=== PATIENT | female | born 2005 | race Two or more races ===

== ENCOUNTER 2025-06-01 03:55 | Emergency (ER) | payer MEDICAID, SELFPAY ==
[2025-06-01 03:58] VITALS: BMI 24.2
[2025-06-01 04:10] VITALS: BP 103/65; PULSE 60; RESP 18; TEMP 37.6; O2SAT 98
[2025-06-01 04:12] VITALS: BP 101/67; PULSE 74; RESP 17; TEMP 36.9; O2SAT 97
--- NOTE | 2025-06-01 05:32 | EDNOTE_ITS ---
ED Headache RME/HPI General Chief Complaint: Headache Stated Complaint: OCCIPITAL AREA PAIN Time Seen by Provider: 06/01/25 04:45 Arrival date/time: 06/01/25 03:55 19F with no significant PMH presents to ED with several days of CHAHAL that gradually got worse. Tylenol helps, but wears off. Chills and possible fever, but not measured. Patient denies URI symptoms, dysuria, N/V, ab pain, and fall/trauma. Limitations: no limitations Related Data Allergies Allergy/AdvReac Type Severity Reaction Status Date / Time No Known Allergies Allergy Verified 06/01/25 04:04 Review of Systems Review of Systems Systems Reviewed: All systems reviewed, normal except as documented Constitutional Constitutional: Reports system reviewed and no additional complaints, except as documented, Reports as per HPI, Reports chills, Reports fever(s) and Reports headache(s) ENT Ears, Nose, Mouth, and Throat: Denies disequilibrium and Reports headache(s) Cardiovascular Cardiovascular: Reports system reviewed and no additional complaints, except as documented, Denies chest pain and Denies dyspnea Respiratory Respiratory: Reports system reviewed and no additional complaints, except as documented, Denies cough and Denies dyspnea Gastrointestinal Gastrointestinal: Reports system reviewed and no additional complaints, except as documented, Denies abdominal pain, Denies nausea and Denies vomiting Neurologic Neurologic: Reports system reviewed and no additional complaints, except as documented, Denies confusion, Denies disequilibrium and Reports headache(s) Psychiatric Psychiatric: Denies confusion Past Medical History Social History SMOKING STATUS: Never smoker ED Exam General Limitations: Present no limitations General appearance: Present alert and in no apparent distress Head Head exam: Present atraumatic Eye Eye exam: Present normal appearance, PERRL and EOMI ENT ENT exam: Present normal exam, normal oropharynx and mucous membranes moist Neck Neck exam: Present normal inspection, full ROM and trachea midline Chest Chest inspection: Present normal inspection and symmetric chest wall rise Respiratory Respiratory exam: Present normal lung sounds bilaterally Cardiovascular Cardiovascular exam: Present regular rate, normal rhythm and normal heart sounds Abdominal Exam Abdominal exam: Present soft and normal bowel sounds Extremities Exam Extremities exam: Present normal inspection and full ROM Back Exam Back exam: Present normal inspection and full ROM Neurological Exam Neurological exam: Present alert, oriented X3 and CN II-XII intact Psychiatric Psychiatric exam: Present normal affect and normal mood Skin Skin exam: Present warm, dry, intact and normal color Course Quality Measures none Orders Category Date Time Status Bedside COVID-19 Antigen Test NOW Care 06/01/25 04:30 Active Bedside Influenza A&B Antigen Test NOW Care 06/01/25 04:30 Active Metoclopramide [Reglan] Med 06/01/25 04:46 Discontinued 10 mg PO X1 ONE Naproxen [Naprosyn] Med 06/01/25 04:46 Discontinued 500 mg PO X1 ONE Vital Signs Vital signs: Vital Signs Temperature 99.6 F 06/01/25 04:10 Pulse Rate 60 06/01/25 04:10 Respiratory Rate 18 06/01/25 04:10 Blood Pressure 103/65 06/01/25 04:10 Pulse Oximetry (%) 98 06/01/25 04:10 Oxygen Delivery Method Room Air 06/01/25 04:10 O2 at 98% on RA and WNLs Headache MDM Narrative MDM Narrative:: 19F with no significant PMH presents to ED with several days of CHAHAL that gradually got worse. Tylenol helps, but wears off. Chills and possible fever, but not measured. Patient denies URI symptoms, dysuria, N/V, ab pain, and fall/trauma. Physical exam reveals normal pupil response and EOM. Neck ROM intact. Speech normal. Gait normal. Normal WOB. Oropharynx clear. Patient is afebrile, calm, and alert. Swabs neg. Meds and supervisor counseling and guidance given. Patient did not want to wait for response to pain meds. Patient data External records reviewed:: None Clinical information provided by:: patient Social determinants that could affect healthcare access:: none Patient has the following chronic illnesses:: none How is presenting disease/condition affected by chronic disease/condition?: no chronic disease Evaluation data The following diagnostics were reviewed and interpreted by me:: lab results Lab and/or radiology exams considered but not ordered:: ordered Interpretation Summary: above Medications / Prescriptions Medications or Prescriptions considered but not ordered:: ordered Medication administrations:: Medication Administration History Discontinued Medications Metoclopramide HCl (Metoclopramide 5 Mg Tablet) 10 mg PO X1 ONE Stop: 06/01/25 04:47 Naproxen (Naproxen 250 Mg Tablet) 500 mg PO X1 ONE Stop: 06/01/25 04:47 above Consultations Consultation(s) initiated? (list below): No Diagnosis Differential diagnosis headache: migraine, tension headache, subarachnoid hemorrhage, headache, meningitis, sinusitis and postconcussion syndrome Most likely diagnosis given after review of the tests above:: CHAHAL Admission Indicated Admission indicated?: not indicated Admission Request Was there a request for admission?: No Disposition Plan Disposition Plan: Discharge Discharge Attestation Discharge Attestation: The patient and all family members were given an opportunity to ask questions and understood the discharge instructions. Discharge instructions specifically effects, indications for sooner follow up or return to the emergency department, and the expected course of current diagnosis. Patient condition: Stable Discharge Plan Plan Patient Disposition: HOME (Self Care) Discharge Disposition comment: Stable Problem List Clinical Impression: Headache Patient/Caregiver Discharge Instructions Education Materials: Self-Care for Headaches Additional Instructions: Please follow-up with PCP within 24-48 hours and return immediately if symptoms worsen. NSAIDs like ibuprofen tend to work better for this type of pain. Print Language: Jordanian Stand Alone Forms: Patient Portal Info Letter MIKEY/ROBIN Supervising Physician TYLOR Supervising Physician: Dr. Roca
[2025-06-01] MEDS: NAPROXEN 250 MG TABLET 500 MG PO (05:58)
[2025-06-01] MEDS: METOCLOPRAMIDE 5 MG TABLET 10 MG PO (05:58)
== END 2025-06-01 06:05 | disposition home or self-care (01) ==
LOC: SERX 06:19
PROVIDERS: Emergency Provider Emergency Medicine
DX: R51.9 Headache, unspecified (principal)
CPT/HCPCS: 99283; A9270

== ENCOUNTER 2025-08-01 02:38 | Emergency (ER) | payer SELFPAY ==
[2025-08-01 02:38] VITALS: BP 127/72; PULSE 70; RESP 18; TEMP 36.8; O2SAT 98; BMI 24.2
--- NOTE | 2025-08-01 03:09 | EDNOTE_ITS ---
ED Skin Abcess FB-RME/HPI General Chief complaint: Skin/Abscess/Foreign Body Stated complaint: RASH ON FACE Time Seen by Provider: 08/01/25 02:54 Arrival date/time: 08/01/25 02:38 19F with no significant PMH presents to ED with 1 day of generalized itchy rash on face. Patient denies new meds, food, products, or changes in habits such as hiking or excessive sun exposure. Limitations: no limitations Related Data Previous Rx's ?Medication ?Instructions ?Recorded hydrocortisone 2.5 % topical cream 1 applic topical QD AY 2 weeks #28 08/01/25 grams Allergies Allergy/AdvReac Type Severity Reaction Status Date / Time No Known Allergies Allergy Verified 06/01/25 04:04 Review of Systems Review of Systems Systems Reviewed: All systems reviewed, normal except as documented Integumentary/Breasts Skin/Breast: Reports as per HPI, Reports pruritus and Reports rash Past Medical History Social History SMOKING STATUS: Never smoker ED Exam General Limitations: Present no limitations General appearance: Present alert and in no apparent distress Head Head exam: Present atraumatic Neck Neck exam: Present normal inspection, full ROM and trachea midline Chest Chest inspection: Present normal inspection and symmetric chest wall rise Extremities Exam Extremities exam: Present normal inspection and full ROM Back Exam Back exam: Present normal inspection and full ROM Neurological Exam Neurological exam: Present alert and oriented X3 Psychiatric Psychiatric exam: Present normal affect and normal mood Skin Skin exam: Present warm, dry, intact, normal color and rash Course Quality Measures none Vital Signs Vital signs: Vital Signs Temperature 98.3 F 08/01/25 02:38 Pulse Rate 70 08/01/25 02:38 Respiratory Rate 18 08/01/25 02:38 Blood Pressure 127/72 08/01/25 02:38 Pulse Oximetry (%) 98 08/01/25 02:38 Oxygen Delivery Method Room Air 08/01/25 02:38 O2 at 98% on RA and WNLs Skin / Abscess / Foreign Body MDM Narrative MDM Narrative:: 19F with no significant PMH presents to ED with 1 day of generalized itchy rash on face. Patient denies new meds, food, products, or changes in habits such as hiking or excessive sun exposure. Physical exam reveals many minute pustules on face, like small milia or acne bumps. Patient is afebrile, calm, and alert. Unknown etiology of dermatitis. Will trial low-strength steroid cream. Counseled to see dermatology if it persists. Patient data External records reviewed:: [facility] previous records Clinical information provided by:: patient Social determinants that could affect healthcare access:: none Patient has the following chronic illnesses:: none How is presenting disease/condition affected by chronic disease/condition?: no chronic disease Evaluation data The following diagnostics were reviewed and interpreted by me:: other (specify) (none) Lab and/or radiology exams considered but not ordered:: not ordered Interpretation Summary: n/a Medications / Prescriptions Medications or Prescriptions considered but not ordered:: not ordered Medication administrations:: n/a Consultations Consultation(s) initiated? (list below): No Diagnosis Skin/Abscess Differential Diagnosis: abscess of skin or subcutaneous tissue, viral exanthem, dermatophytosis, urticaria, herpes zoster, allergic reaction to drug, cellulitis, eczema, insect bites, impetigo, contact dermatitis and other (dermatitis) Most likely diagnosis given after review of the tests above:: dermatitis Admission Indicated Admission indicated?: not indicated Admission Request Was there a request for admission?: No Disposition Plan Disposition Plan: Discharge Discharge Attestation Discharge Attestation: The patient and all family members were given an opportunity to ask questions and understood the discharge instructions. Discharge instructions specifically effects, indications for sooner follow up or return to the emergency department, and the expected course of current diagnosis. Patient condition: Stable Discharge Plan Plan Patient Disposition: HOME (Self Care) Discharge Disposition comment: Stable Prescriptions/Referrals Prescriptions/Med Rec: New hydrocortisone 2.5 % cream 1 applic topical QDAY 14 Days Qty: 28 0RF Rx Instructions: No more than 2 weeks. Referrals: Temporary Provider,ED [Primary Care Provider, Emergency Medicine] - In 1 week Problem List Clinical Impression: Dermatitis Patient/Caregiver Discharge Instructions Education Materials: ED Dermatitis Non Specific Rash Additional Instructions: Please follow-up with PCP within 24-48 hours and return immediately if symptoms worsen. If problem persists, see associate director of nursing. Print Language: Belarusian Stand Alone Forms: Patient Portal Info Letter MIKEY/ROBIN Supervising Physician MIKEY/ROBIN Supervising Physician: Dr. Navarro
== END 2025-08-01 03:04 | disposition home or self-care (01) ==
LOC: SERX 04:11
PROVIDERS: Emergency Provider Emergency Medicine
DX: L30.9 Dermatitis, unspecified (principal)
CPT/HCPCS: 99281